=== PATIENT | male | born 1945 | race Caucasian/White ===

== ENCOUNTER 2023-11-12 11:15 | Outpatient (OUT) | payer MEDICARE, SELFPAY ==
--- NOTE | 2023-11-12 | XR_ITS ---
[address] [address] Patient Name: BI BENDER MRN: [id number] date: 1945 Sex: M Assigned Patient Location: Current Patient Location: Accession/Order Number: [id number] Exam Date: 11/12/2023 11:30 Report Date: 11/13/2023 06:59 At the request of: ASHKAN COULTER Procedure: XR ankle ROCCO min 3V EXAMINATION: XR ankle ROCCO min 3V, XR foot ROCCO min 3V HISTORY: BILATERAL ANKLE PAIN COMPARISON: No relevant comparison available. FINDINGS: RIGHT FINDINGS: BONES: No acute fracture or dislocation. Partial flattening of the plantar arch. Moderate plantar enthesopathic spurring of the calcaneus. Moderate to severe degenerative changes with joint space narrowing and marginal osteophyte formation with hwvx-[id number] articulation at the first tarsophalangeal joint SOFT TISSUES: Soft tissue swelling OTHER: Negative. LEFT FINDINGS: BONES: No acute fracture or dislocation. Partial flattening of the plantar arch. Moderate plantar enthesopathic spurring of the calcaneus. Mild degenerative changes with joint space narrowing and marginal osteophyte formation SOFT TISSUES: Negative. No visible soft tissue swelling. OTHER: Negative. 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
--- NOTE | 2023-11-12 | XR_ITS ---
[address] [address] Patient Name: BI BENDER MRN: [id number] date: 1945 Sex: M Assigned Patient Location: Current Patient Location: Accession/Order Number: [id number] Exam Date: 11/12/2023 11:30 Report Date: 11/13/2023 06:59 At the request of: ASHKAN COULTER Procedure: XR foot ROCCO min 3V EXAMINATION: XR ankle ROCCO min 3V, XR foot ROCCO min 3V HISTORY: BILATERAL ANKLE PAIN COMPARISON: No relevant comparison available. FINDINGS: RIGHT FINDINGS: BONES: No acute fracture or dislocation. Partial flattening of the plantar arch. Moderate plantar enthesopathic spurring of the calcaneus. Moderate to severe degenerative changes with joint space narrowing and marginal osteophyte formation with yvem-ob-[id number] articulation at the first tarsophalangeal joint SOFT TISSUES: Soft tissue swelling OTHER: Negative. LEFT FINDINGS: BONES: No acute fracture or dislocation. Partial flattening of the plantar arch. Moderate plantar enthesopathic spurring of the calcaneus. Mild degenerative changes with joint space narrowing and marginal osteophyte formation SOFT TISSUES: Negative. No visible soft tissue swelling. OTHER: Negative. 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
== END 2023-11-12 11:16 | disposition home or self-care (01) ==
LOC: EC 11:16
PROVIDERS: PCP Family Medicine; Visit Provider Podiatrist Foot & Ankle Surgery
DX: M79.671 Pain in right foot (principal); M25.571 Pain in right ankle and joints of right foot; M79.672 Pain in left foot; M25.572 Pain in left ankle and joints of left foot
CPT/HCPCS: 73610; 73630

== ENCOUNTER 2023-12-03 12:41 | Outpatient (OUT) | payer MEDICARE, SELFPAY ==
--- NOTE | 2023-12-03 13:00 | CA_ITS ---
[facility] Test Date: 2023-12-03 Pat Name: BI BENDER Department: Room: - Gender: Male [employer]: : 1945 Requested By: ASHKAN COULTER Order Number: [id number] Reading MD: SIDNEY KERR Interpretive Statements Biphasic doppler waveforms PVR waveforms with normal upstroke, amplitude and dicrotic notch Right: - no significant pressure gradiet between cuffs - normal YONG Left: - no significant pressure gradiet between cuffs - normal YONG Impression: Normal arterial evaluation of the lower extremities without hemodynamic impairment of the B/L lower extremities at rest (right YONG 1.13, left YONG 1.18) Electronically Signed On 12-03-2023 23:26:52 EDT by SIDNEY KERR
--- NOTE | 2023-12-03 13:39 | CT_ITS ---
[address] [address] Patient Name: BI BENDER MRN: [id number] date: 1945 Sex: M Assigned Patient Location: CARD Current Patient Location: CARD Accession/Order Number: [id number] Exam Date: 12/03/2023 13:50 Report Date: 12/03/2023 14:33 At the request of: ASHKAN COULTER Procedure: CT foot RT wo con EXAMINATION: CT foot RT wo con HISTORY: Hallux Rigidus COMPARISON: 11/12/2023 TECHNIQUE: Multi-planar CT images were created without IV contrast. Dose reduction techniques were achieved by using automated exposure control and/or adjustment of mA and/or kV according to patient size and/or use of iterative reconstruction technique. FINDINGS: BONES: No acute fracture or dislocation. Mild to moderate degenerative changes with joint space narrowing and marginal osteophyte formation most significant along the first metatarsal-phalangeal joint where there is vukk-no-tzqu articulation, bony remodeling and marginal osteophyte formation extending into the sesamoids. Moderate osteoarthropathy Anterior tibiotalar joint . Moderate enthesopathic spurring plantar calcaneus. Persistent flexion of the second through fifth toes. SOFT TISSUES: Negative. No visible soft tissue swelling. EFFUSION: None visible. OTHER: Negative. CT/CT foot RT wo con IMPRESSION: Severe osteoarthritis first metatarsal-phalangeal joint with hpyx-hx-euku articulation and bony remodeling Electronically authenticated by: KIMBERLEE PEARSON Date: 12/03/2023 14:33
== END 2023-12-03 12:42 | disposition home or self-care (01) ==
LOC: CARD 12:41
PROVIDERS: PCP Family Medicine; Visit Provider Podiatrist Foot & Ankle Surgery
DX: M20.21 Hallux rigidus, right foot (principal); R09.89 Other specified symptoms and signs involving the circulatory and respiratory systems; M19.071 Primary osteoarthritis, right ankle and foot
CPT/HCPCS: 73700; 93923